=== PATIENT | female | born 1965 | race Caucasian/White ===

== ENCOUNTER 2016-10-02 05:39 | Day surgery (SDC) | payer OTHER ==
[~2016-10-02] VITALS: Ht 162.6 cm; Wt 156.9 kg
[2016-10-02] VITALS (9 sets, daily range): BP systolic 131–157; BP diastolic 53–99; PULSE 65–82; RESP 16–22; O2SAT 91–99
[~2016-10-02 05:39] MED LIST: DEXAMETHASONE PO; LEVO300T5 PO; Lactated Ringer's 1,000 ML IV ONE
[2016-10-02] MEDS ORDERED: fentaNYL-PF 50 mCg/mL 2 mL Inj ONE (05:40)
[2016-10-02] MEDS ORDERED: Ondansetron 2 mg/mL 2 mL Inj ONE (05:40)
[2016-10-02] MEDS ORDERED: Propofol 10,000 mCg/mL 20 mL Inj ONE (05:40)
[2016-10-02] MEDS ORDERED: MetoCLOpramide 5 mg/mL 2 mL Inj ONE (05:40)
[2016-10-02] MEDS ORDERED: Dexamethasone 4 mg/mL Inj ONE (05:40)
[2016-10-02] MEDS ORDERED: URIN1STR MC (05:52)
--- NOTE | 2016-10-02 07:49 | PCM.HPANE ---
Patient Data Date of Service: Oct 02, 2016 (0710) Surgeon Admitting Provider: Attending Provider:Martin Barrios DO Primary Care Physician:Other,Physician Other Provider:Myles Keene Anesthesia Reason for Visit Left Torn Medial Meniscus Ht/WT & BMI Height (Feet): 5 Height (Inches): 4.00 Weight (Kilograms): 156.9 Body Mass Index 59.00 Allergies Coded Allergies: morphine (Verified Adverse Reaction, Severe, Nausea,Vomiting,Diarrhea, ) Past Anesthesia History Anesthesia History: Denies:: Anesthesia Reactions, Malignant Hyperthermia Diabetes History Hx Diabetes?: No MRSA MRSA: No Medications Home Meds Incl Beta Mark: No Reported Medications Urine Leukocyte Test (Azo)1 Each Strip1 Each MC 10/02/16 [dexamethasone cream] No Conflict Check1 Applic PO BID PRN prn 09/29/16 Levothyroxine 300 Mcg [id number] Mcg PO DAILY Ref 0 09/29/16 History History of ENT Problems?: Yes HEENT History: Denies:: Abnormal Airway Cataracts Difficult Intubation Dysphagia Glaucoma Hearing Problem Sinus Problem TMJ Denture Type: None Teeth Condition: Within Normal Limits Other HEENT Pertinent History: S/P TONSILLECTOMY Hx of Heart Problems?: No Cardiovascular History: Denies:: AICD Abdominal Aortic Aneurism Atrial Fibrillation Cardiac Surgery Chest Pain Congestive Heart Failure Coronary Artery Disease Edema Heart Murmur Hypertension Irregular Heartbeat Pacemaker Peripheral Vascular Rheumatic Fever Thrombophlebitis Valvular Heart Disease Hx of Respiratory Problem?: No Respiratory History: Denies:: Asthma COPD Chest Surgery Cough Dyspnea Emphysema Hemoptysis Oxygen Administration Pneumonia Pulmonary Embolism Tuberculosis Use of C-PAP Machine ((PT DECLINED "SLEEP' WORKUP)) Use of Inhalers / NEBS Hx Neurologic Problems?: No Neurological History: Denies:: Alzheimer's Disease CVA Dementia Dizziness Headaches Multiple Sclerosis Parkinson's Disease Peripheral Neuropathy Seizures TIA Hx of GI Problems?: Yes Other GI Pertinent History: S/P APPY Hx of Problems?: No Genitourinary History: Denies:: HX of Hemodialysis Kidney Stones Urinary Tract Infection Female Hx: Denies:: Currently Endometriosis Pelvic Inflammatory Problems with Breasts? Skin History: Positive for:: History Skin Disorders? (SEVERE ECZEMA) Denies:: Pressure Ulcers Hx Musculoskeletal Problems?: Yes Musculoskeletal History: Positive for:: Musculoskeletal Trauma (LT KNEE MENISCAL TEAR=CURRENT PROBLEM) Hx of Psycho/Social Problems?: Yes Psycho Social History: Positive for:: Anxiety Denies:: Bipolar Disorder Hx Depression Suicide Attempt Hx Surgeries?: Yes (gallbladder, appy, tonsils) Hx Any Other Health Problems?: Yes Other History: Positive for:: Hospitalization (CHILDBIRTH) Thyroid Disease (hypothyroid) Denies:: Cancer Endocrine Disease History Blood Transfusions: Denies:: Blood Transfuse Reaction Blood Transfusions Hx Diabetes: No Hx Alcohol Use: NoHx Substance Use: NoHave You Smoked inLast 12 mo: NoApprox How Many Cigarettes/day: 1/2 PPD X 2YRS Stop/Bang S-Snoring: Do You Snore Loudly: No T-Tired: feel tired, fatigued: No O-Obsered: Observed not breath: No P-Blood Pressure: treated: No B- Body Mass Index > 35 kg/m2: Yes A- Age over 50: Yes N- Neck Large Circumference: Yes G- Gender Male: No SID Total Score: 3 Risk Assessment Category Category 1A: Patient has history of documented sleep apnea, and HAS NOT received any narcotic, sedative or anesthesia administration during this stay. Category 1B: Patient has history of documented sleep apnea, and HAS received any narcotic , sedative or anesthesia administration during this stay Category 2: Patient has SUSPECTED Obstructive Sleep Apnea, and HAS received any narcotic , sedative or anesthesia administration during this stay. Category 3: Patient has SUSPECTED Obstructive Sleep Apnea and HAS NOT received narcotic, sedative or anesthesia administration during this stay. Category 4: Outpatient in Procedural Areas with known sleep apnea or who screen positive for High Risk via the STOP/BANG questionnaire. Exam Exam Vital Signs Vital Signs Date Time Temp Pulse Resp B/P Pulse Ox O2 Delivery O2 Flow Rate FiO2 10/02/16 06:23 36.3 79 18 157/99 97 Room Air General Appearance: Alert, Oriented X3, Cooperative, No Acute Distress HEENT/AIRWAY: MP 2 Lungs: Clear to Auscultation Heart: Exam Unremarkable Meds/Labs/Diagnostics Admission Meds Current Medications Lactated Ringer's (Lr) 1,000 ml @ 120 mls/hr [id number] ONCE IV Last administered on 10/02/16t 05:42; Start 10/02/16 at 00:54; Stop 10/02/16 at 09:13 Plan Impression Patient chart reviewed, patient interviewed and anesthestic plan with risks, benefits, and alternatives discussed, and informed consent obtained. ASA Physical Status: ASA3 Severe Disease Anesthetic Plan: GA Bene/Risks/Altern/Consents: Yes HP Complete Prior to Induction: Yes James Luna MD Oct 02, 2016 07:49
[2016-10-02] MEDS ORDERED: Phenylephrine 10,000 mCg/mL Inj IVPUSH PRN (07:50)
[2016-10-02] MEDS ORDERED: Lactated Ringer's 1,000 ML IV SCH (07:50)
[2016-10-02] MEDS ORDERED: fentaNYL-PF 50 mCg/mL 2 mL Inj IVPUSH PRN (07:50)
[2016-10-02] MEDS ORDERED: Ondansetron 2 mg/mL 2 mL Inj IVPUSH PRN (07:50)
[2016-10-02] MEDS ORDERED: HYDROmorphone 1 mg/mL Inj IVPUSH PRN (07:50)
[2016-10-02] MEDS ORDERED: Lactated Ringer's 500 ML IV PRN (07:50)
[2016-10-02] MEDS ORDERED: MetoCLOpramide 5 mg/mL 2 mL Inj IVPUSH PRN (07:50)
[2016-10-02] MEDS ORDERED: Dexamethasone 4 mg/mL Inj IVPUSH PRN (07:50)
[2016-10-02] MEDS ORDERED: EPHEDrine Sulfate 50 mg/mL Inj IVPUSH PRN (07:50)
[2016-10-02] MEDS ORDERED: Lidocaine 2%-Epi 1:100,000 20 mL Inj INFILTRATE ONE (08:01)
[2016-10-02] MEDS ORDERED: Ropivacaine-PF 0.5% 30 mL Inj INJ ONE (08:01)
[2016-10-02] MEDS ORDERED: hydrOXYzine Pamoate 25 mg Capsule PO PRN (08:30)
[2016-10-02] MEDS ORDERED: HYDROcodone-APAP 5-325 mg Tablet PO PRN (08:30)
--- NOTE | 2016-10-02 09:13 | PCM.ANEP1 ---
Post Anesthesia Phase 1 PACU Phase 1 Assessment Date of Service: Oct 02, 2016 (0710) Vital Signs Vital Signs Date Time Temp Pulse Resp B/P Pulse Ox O2 Delivery O2 Flow Rate FiO2 10/02/16 09:01 36.7 72 16 153/56 Room Air 10/02/16 08:55 73 17 142/66 93 Room Air 10/02/16 08:45 77 17 154/53 91 Room Air 10/02/16 08:40 82 22 147/67 95 Room Air 10/02/16 08:37 78 16 131/68 99 Simple Mask 10 10/02/16 08:30 75 18 135/58 99 Simple Mask 10 10/02/16 08:25 36.8 74 18 155/79 99 Simple Mask 10 10/02/16 06:23 36.3 79 18 157/99 97 Room Air Anesthetic Administered: GA Level of Alertness: Awake, talking BAILON's with Equal Strength: Yes Pain: No Nausea or Vomiting: No Oxygen Delivery: Simple Mask Lungs: Clear to Auscultation Dermatome Level: Full Sensation Complications: No James Luna MD Oct 02, 2016 09:13
--- NOTE | 2016-10-02 13:22 | OP ---
[address] [address] OPERATIVE REPORT PATIENT: BE SMITH : 1965 MR#: [id number] ADMIT: 10/02/2016 JOB ID: [id number] DATE OF SURGERY: 10/02/2016 PREOPERATIVE DIAGNOSIS(ES): Left knee torn medial meniscus. POSTOPERATIVE DIAGNOSIS(ES): Left knee torn medial meniscus. PROCEDURE: Left knee video arthroscopy with partial medial meniscectomy. SURGEON: Martin Barrios DO ANESTHESIA: General. INDICATIONS: The patient is a 51-year-old female who injured her left knee when she fell while at home. She had pain in her left knee over the medial aspect ever since. She had an MRI which demonstrated a torn medial meniscus and wished to proceed with a knee arthroscopy. We discussed the risks, benefits, and possible complications of surgery. All questions were answered. She wished to proceed. PROCEDURE IN DETAIL: Patient was brought to the operating room. She was given LMA general anesthetic. The left lower extremity was sterilely prepped and draped. An incision was made over the anterolateral knee at the level of joint line and blunt trocar was introduced into the knee. Inspection was undertaken. I could not get the scope into the patellofemoral joint due to her large body habitus and soft tissue about the knee, but her medial compartment articular cartilage was in good condition without any significant degenerative changes. Her medial meniscus had a complex tear, and a medial portal was established and the meniscal tear was resected back to a stable base with a combination of biters and shaver. Her ACL was found to be intact. Her lateral compartment was pristine. The scope was then removed. The portals were closed with interrupted nylon suture. Naropin was added as an adjunct local anesthetic. Sterile dressings were applied. Patient tolerated the procedure well. Blood loss was minimal. POSTOPERATIVE PROTOCOL: Will have the patient weightbear to tolerance. Use crutches as needed. Ice and elevate. Follow up in the clinic in two weeks or sooner if needed. She was given a prescription for Hitchcock 5/325 for pain.
== END 2016-10-02 23:59 | disposition home or self-care (01) ==
LOC: SAS 05:39
PROVIDERS: ATTEND Orthopaedic Surgery
DX: S83.232A Complex tear of medial meniscus, current injury, left knee, initial encounter (principal); F41.9 Anxiety disorder, unspecified; E03.9 Hypothyroidism, unspecified; E66.01 Morbid (severe) obesity due to excess calories; W18.39XA Other fall on same level, initial encounter; Y93.01 Activity, walking, marching and hiking; Y92.019 Unspecified place in single-family (private) house as the place of occurrence of the external cause; Y99.8 Other external cause status; Z68.44 Body mass index [BMI] 60.0-69.9, adult; Z87.891 Personal history of nicotine dependence
CPT/HCPCS: 29881; J1100; J1170; J1885; J2405; J2765; J2795; J3010; J7120